=== PATIENT | male | born 1960 | race Caucasian/White ===

== ENCOUNTER 2017-01-08 15:35 | Outpatient (CLI) | payer MEDICARE, MEDICAID ==
[2016-09-28 17:24] VITALS: BP 118/91
== END 2017-01-08 15:36 ==
LOC: NEPHRO 15:35
PROVIDERS: ATTEND Internal Medicine Nephrology
DX: N18.9 Chronic kidney disease, unspecified (principal); I10 Essential (primary) hypertension; E11.9 Type 2 diabetes mellitus without complications; E21.3 Hyperparathyroidism, unspecified; E03.9 Hypothyroidism, unspecified
CPT/HCPCS: G0463

== ENCOUNTER 2017-01-09 08:15 | Outpatient (CLI) | payer MEDICARE, MEDICAID ==
[2016-09-28 17:24] VITALS: BP 118/91
[2017-01-09 08:34] LABS: BASOPHILS % 0.2 (0.0-1.5); EOSINOPHILS % 1.3 % (0.0-6.8); LYMPHOCYTES # 1.4 # k/uL (0.6-4.0); MEAN CORPUSCULAR HEMOGLOBIN 31.2 pg (28.0-34.0); MONOCYTES # 0.3 # k/uL (0.0-0.9); MONOCYTES % 3.1 % (0.0-11.0); NEUTROPHILS # 6.6 # k/uL (1.4-7.7)
[2017-01-09 09:08] LABS: eGFR (African) 38; eGFR (Non-African) 31
== END 2017-01-09 08:16 ==
LOC: LAB 08:15
PROVIDERS: ATTEND Internal Medicine Nephrology
DX: N18.9 Chronic kidney disease, unspecified (principal); I10 Essential (primary) hypertension; E11.9 Type 2 diabetes mellitus without complications; E21.3 Hyperparathyroidism, unspecified; E03.9 Hypothyroidism, unspecified
CPT/HCPCS: 36415; 80053; 83970; 85025

== ENCOUNTER 2017-03-19 14:50 | Outpatient (CLI) | payer MEDICARE, OTHER ==
[2016-09-28 17:24] VITALS: BP 118/91
== END 2017-03-19 14:52 ==
LOC: NEPHRO 14:50
PROVIDERS: ATTEND Internal Medicine Nephrology
DX: N18.9 Chronic kidney disease, unspecified (principal)
CPT/HCPCS: G0463

== ENCOUNTER 2017-05-09 10:37 | Outpatient (CLI) | payer MEDICARE, OTHER ==
[2016-09-28 17:24] VITALS: BP 118/91
[2017-05-09 11:19] LABS: BASOPHILS % 0.5 (0.0-1.5); MEAN CORPUSCULAR HEMOGLOBIN 30.6 pg (28.0-34.0); MONOCYTES % 3.4 % (0.0-11.0); NEUTROPHILS # 4.8 # k/uL (1.4-7.7)
[2017-05-09 11:27] LABS: eGFR (African) 32; eGFR (Non-African) 26
== END 2017-05-09 11:00 ==
LOC: LAB 10:37
PROVIDERS: ATTEND Family Medicine
DX: E11.9 Type 2 diabetes mellitus without complications (principal); I10 Essential (primary) hypertension; E03.9 Hypothyroidism, unspecified
CPT/HCPCS: 36415; 80053; 80061; 83036; 84443; 85025